=== PATIENT | female | born 1960 | race Caucasian/White ===

== ENCOUNTER 2021-02-20 18:27 | Emergency (ER) | payer MEDICAID ==
[~2021-02-20] VITALS: Ht 165.1 cm; Wt 75.0 kg
[2021-02-20 18:33] VITALS: BP 153/79
[2021-02-20] MEDS ORDERED: ACETAMINOPHEN 500MG TABLET PO ONE (20:45)
[2021-02-20] MEDS ORDERED: IBUP-2029 MT (21:31)
== END 2021-02-20 22:19 | disposition home or self-care (01) ==
LOC: ER 18:27
DX: S92.514A Nondisplaced fracture of proximal phalanx of right lesser toe(s), initial encounter for closed fracture (principal); I10 Essential (primary) hypertension; W22.8XXA Striking against or struck by other objects, initial encounter; Y93.01 Activity, walking, marching and hiking; Y92.89 Other specified places as the place of occurrence of the external cause
CPT/HCPCS: 73660; 99283; Z7610

== ENCOUNTER 2024-05-29 16:12 | Emergency (ER) | payer MEDICAID, OTHER ==
[~2024-05-29] VITALS: Ht 167.6 cm; Wt 100.0 kg
[~2024-05-29 16:12] MED LIST: IBUP-2029 MT
[2024-05-29 16:27] VITALS: TEMP 36.9; O2SAT 97
[2024-05-29] MEDS ORDERED: IBUP-2029 MT (18:30)
[2024-05-29 18:41] VITALS: O2SAT 100
[2024-05-29 19:07] VITALS: BP 137/81; PULSE 65; RESP 16
[2024-05-29] MEDS: IBUPROFEN 600MG TABLET PO ONE (19:07)
== END 2024-05-29 19:09 | disposition home or self-care (01) ==
LOC: ER 16:12
DX: M25.571 Pain in right ankle and joints of right foot (principal); I10 Essential (primary) hypertension; Z90.49 Acquired absence of other specified parts of digestive tract; Z98.890 Other specified postprocedural states
CPT/HCPCS: 73560; 99283

== ENCOUNTER 2024-10-08 12:30 | Emergency (ER) | payer MEDICAID, OTHER ==
[~2024-10-08] VITALS: Ht 162.6 cm; Wt 103.0 kg
[2024-10-08 12:37] VITALS: TEMP 36.7; O2SAT 99
[2024-10-08] MEDS: LIDOCAINE 5% PATCH TOP SCH (13:24)
[2024-10-08] MEDS: KETOROLAC 30MG/ML VIAL IM ONE (13:25)
[2024-10-08] MEDS ORDERED: LIDO-53 TP (15:20)
[2024-10-08 15:57] VITALS: BP 144/75; PULSE 56; RESP 16; O2SAT 98
== END 2024-10-08 16:00 | disposition home or self-care (01) ==
LOC: ER 12:30
DX: M17.12 Unilateral primary osteoarthritis, left knee (principal); M25.561 Pain in right knee; I10 Essential (primary) hypertension; Z98.890 Other specified postprocedural states
CPT/HCPCS: 73560; 29505; 96372; 99283; J1885; Z7610